=== PATIENT | male | born 1980 | race Two or more races ===

== ENCOUNTER 2019-09-13 14:29 | Emergency (ER) | payer SELFPAY ==
[~2019-09-13] VITALS: Ht 172.7 cm; Wt 84.4 kg
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
[2019-09-13] MEDS ORDERED: LORAZEPAM INJ 2 MG/ML VIAL ONE (14:36)
[2019-09-13] MEDS ORDERED: OLANZAPINE 10 MG VIAL IM ONE ×2 (14:36→15:00)
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
--- NOTE | 2019-09-13 14:44 | NUR ---
IV LINE ESTABLISHED, BLOOD DRAWN AND SENT TO LAB.
[2019-09-13 14:58] LABS: BASOPHILS % (AUTO) 0.7 % (0.0-2.0); EOSINOPHILS % (AUTO) 2.5 % (0.0-6.0); HEMATOCRIT 44 % (39-51); HEMOGLOBIN 14.8 g/dL (13.5-17.5); LYMPHOCYTES # (AUTO) 2.2 /CMM (0.8-4.8); MEAN CORPUSCULAR HGB CONC 34 g/dl (31.0-36.0); MEAN CORPUSCULAR VOLUME 85 fL (80-96); MONOCYTES # (AUTO) 0.5 /CMM (0.1-1.30); NEUTROPHILS # (AUTO) 3.1 /CMM (1.8-8.9); NEUTROPHILS % (AUTO) 51.8 % (43.0-81.0); PLATELET COUNT (AUTO) 317 /CMM (150-450); RED BLOOD CELL COUNT(AUTO) 5.13 MIL/uL (4.5-6.0); WHITE BLOOD COUNT (AUTO) 5.9 K/uL (4.3-11.0)
[2019-09-13] MEDS ORDERED: IV NS 0.9% 1,000 ML BAG IV ONE (15:00)
[2019-09-13] MEDS ORDERED: LORAZEPAM INJ 2 MG/ML VIAL IV ONE (15:00)
[2019-09-13 15:10] LABS: CARBON DIOXIDE 24 mmol/L (21-32); CHLORIDE 109 mmol/L (98-107); CREATININE 1.6 mg/dL (0.6-1.3); GLUCOSE 98 mg/dL (74-106); POTASSIUM 3.7 mmol/L (3.5-5.1); SODIUM SERUM 146 mmol/L (136-145); UREA NITROGEN, BLOOD 24 mg/dL (7-18)
[2019-09-13 15:12] LABS: CALCIUM, SERUM 9.6 mg/dL (8.5-10.1)
[2019-09-13 15:15] LABS: ACETAMINOPHEN < 2 ug/ml (10-30); ALANINE AMINOTRANSFERASE 25 U/L (12-78); ALBUMIN 4.5 g/dL (3.4-5.0); ALCOHOL, BLOOD < 3 mg/dL (0-0); ALKALINE PHOSPHATASE 86 U/L (46-116); ASPARTATE AMINOTRANSFERASE 19 U/L (15-37); BILIRUBIN,DIRECT 0.2 mg/dL (0.0-0.2); BILIRUBIN,TOTAL 1.1 mg/dL (0.2-1.0); SALICYLATE < 0.2 mg/dL (2.8-20.0); TOTAL PROTEIN, SERUM 7.9 g/dL (6.4-8.2)
--- NOTE | 2019-09-13 15:42 | NUR ---
PT IS BACK FROM THE CT SCAN.
--- NOTE | 2019-09-13 19:04 | NUR ---
PT URINE SPECIMEN COLLECTED AND SENT TO LAB.
[2019-09-13 19:13] LABS: APPEARANCE,URINE Clear (CLEAR); BILIRUBIN,URINE SMALL (NEGATIVE); BLOOD, URINE Negative Ery/uL (NEGATIVE); COLOR,URINE Yellow (YELLOW); KETONES,URINE 15 (NEGATIVE); LEUKOCYTE ESTERASE ,URINE Negative (NEGATIVE); NITRITE, URINE Negative (NEGATIVE); PH,URINE 5.5 (5.0-8.0); PROTEIN,URINE Negative (NEGATIVE); UGLUCOSE Negative (NEGATIVE); UROBILINOGEN,URINE 0.2 EU/dL (0.2)
--- NOTE | 2019-09-13 19:18 | NUR ---
REPORT RECEIVED FROM NAGA, RN
[2019-09-13 19:26] LABS: BACTERIA,URINE Rare /HPF (None Seen); RBC,URINE NONE SEEN /HPF (0-2); SQUAMOUS EPITHELIAL CELL,UR Few /HPF (None Seen); WBC,URINE NONE SEEN /HPF (0-3)
[2019-09-14] MEDS ORDERED: diphenhydrAMINE HCL 50 MG/ML VIAL ONE (03:22)
[2019-09-14] MEDS ORDERED: HALOPERIDOL LACTATE INJ 5 MG/ML VIAL ONE (03:23)
--- NOTE | 2019-09-14 03:29 | NUR ---
PT AGITATED AND SCREAMING. DR DRIVER NOTIFIED. PT MEDICATED ORDERED.
[2019-09-14] MEDS ORDERED: diphenhydrAMINE HCL 50 MG/ML VIAL IM ONE (03:30)
[2019-09-14] MEDS ORDERED: HALOPERIDOL LACTATE INJ 5 MG/ML VIAL IM ONE (03:30)
--- NOTE | 2019-09-14 09:48 | NUR ---
[PT SLEEPING SOUNDLY RESP EVEN UNLABORED
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
--- NOTE | 2019-09-14 20:04 | NUR ---
Patient is ambulatory with a steady gait.
[2019-09-14 20:05] VITALS: BP 120/73
--- NOTE | 2019-09-14 20:05 | NUR ---
IV removed. Catheter intact and site benign. Pressure and 4x4 applied to site. No bleeding noted.
--- NOTE | 2019-09-14 20:05 | NUR ---
Patient discharged to home in stable condition. Written and verbal after care instructions given. Patient verbalizes understanding of instruction.
== END 2019-09-14 20:05 | disposition home or self-care (01) ==
LOC: ER 14:34
DX: F15.10 Other stimulant abuse, uncomplicated (principal); N28.9 Disorder of kidney and ureter, unspecified; R41.82 Altered mental status, unspecified; V89.2XXA Person injured in unspecified motor-vehicle accident, traffic, initial encounter; Y93.89 Activity, other specified; Y92.89 Other specified places as the place of occurrence of the external cause; Y99.8 Other external cause status
CPT/HCPCS: 36415; 70450; 71045; 72125; 74176; 80048; 80076; 80305; 80307; 80329; 81001; 84484; 85025; 93005; 96360; 96372 ×2; 99285; G0480; J1200; J1630; J2060; J3490; J7030; 81000-TC